=== PATIENT | female | born 1995 | race Caucasian/White ===

== ENCOUNTER 2016-09-29 21:20 | Emergency (ER) | payer BC ==
[~2016-09-29] VITALS: Ht 160 cm; Wt 54.5 kg
[~2016-09-29 21:20] MED LIST: NORCO 325 MG-51 TAB PO; RT ADVAIR 228 DISKUS IH
[2016-09-29 21:27] VITALS: BP 127/79; TEMP 98
[2016-09-29] MEDS ORDERED: ALDACTONE 100M100 MG PO (21:29)
[2016-09-29] MEDS ORDERED: ULTRAM 50MG TAB50 MG PO (22:23)
[2016-09-29] MEDS ORDERED: ZOFRAN8 MG PO (22:23)
[2016-09-29 22:31] LABS: PH 6 (5-8); URINE APPEARANCE Clear; URINE BACTERIA None Seen /hpf; URINE BILIRUBIN Negative (NEGATIVE); URINE BLOOD Negative (NEGATIVE); URINE COLOR Yellow; URINE GLUCOSE Negative (NEGATIVE); URINE KETONE Trace (NEGATIVE); URINE RBC 0-2 /hpf; URINE UROBILINOGEN Negative (NEGATIVE); URINE WBC 0-2 /hpf
[2016-09-29 22:37] LABS: CREATININE, serum 0.86 mg/dL (0.52-1.25); HEMATOCRIT 40.7 % (37.0-47.0); HEMOGLOBIN 13.8 g/dl (12.5-16.0); MEAN CELL VOLUME 93 fl (80.0-100.0); MEAN CORPUSCULAR HEMOGLOBIN 32 pg (27.0-31.0); MEAN CORPUSCULAR HGB CONC 34 g/dl (33.0-37.0); PLATELET COUNT 196 K/mm3 (130-400); POTASSIUM 3.8 mmol/L (3.4-5.0); RED BLOOD COUNT 4.38 M/mm3 (4.10-5.30); REDCELL DISTRIBUTION WIDTH-CV 12.1 % (11.5-14.5)
[2016-09-29 22:45] LABS: ADD PATHOLOGY DIFF REVIEW NO
[2016-09-29 23:05] LABS: BAND 6 % (0-10); BASOPHIL 2 % (0-2); NEUTROPHILS 44 % (42.0-75.2); TOTAL CELLS COUNTED 100
[2016-09-29 23:06] LABS: MICROCYTOSIS 1+
[2016-09-29 23:28] VITALS: PULSE 76
== END 2016-09-29 23:29 | disposition home or self-care (01) ==
LOC: COL.ER 21:20
PROVIDERS: Emergency Medicine
DX: R10.31 Right lower quadrant pain (principal); R10.32 Left lower quadrant pain; R10.2 Pelvic and perineal pain
CPT/HCPCS: J1885; J2405; J7030